=== PATIENT | male | born 1990 | race Hispanic/Latino ===

== ENCOUNTER 2019-06-09 | Emergency (ER) | payer SELFPAY ==
[2019-06-09 20:50] LABS: URINE BILIRUBIN - DIPSTICK NEGATIVE (NEGATIVE); URINE BLOOD DIPSTICK NEGATIVE (NEGATIVE); URINE COLOR YELLOW; URINE GLUCOSE - DIPSTICK NEGATIVE (NEGATIVE); URINE KETONE NEGATIVE (NEGATIVE); URINE LEUK ESTERASE NEGATIVE (NEGATIVE); URINE NITRITE - DIPSTICK NEGATIVE (Negative); URINE PH 6.5 (4.5-8.0); URINE PROTEIN - DIPSTICK NEGATIVE (NEG-TRACE); URINE SPECIFIC GRAVITY >=1.030; URINE UROBILINOGEN - DIPSTICK 0.2 E.U./dL (0.2)
[2019-06-09] MEDS ORDERED: PYRIDIUM200 MG PO (21:54)
[2019-06-09] MEDS ORDERED: CIPROFLOXACN500 MG PO (21:54)
== END 2019-06-09 22:27 | disposition home or self-care (01) | DRG 690 ==
PROVIDERS: Emergency Medicine
DX: N34.2 Other urethritis (principal)